=== PATIENT | male | born 1970 | race Caucasian/White ===

== ENCOUNTER → 2018-12-15 16:43 | Outpatient (CLI) | payer OTHER, SELFPAY ==
[2018-12-15 17:13] LABS: Basophils % 0.4 % (0.1-2.0); Eosinophils # 0.1 K/mm3 (0.0-0.4); Eosinophils % 0.7 % (0.1-12.0); Hematocrit 48.7 % (42.0-52.0); Hemoglobin 16.6 g/dL (14.1-18.0); Lymphocytes # 2.8 K/mm3 (0.7-4.5); Lymphocytes % 29.9 % (10-50); Mean Corpuscular Hemoglobin 29.9 pg (27.0-31.2); Mean Corpuscular Volume 87.7 fl (80-94); Mean Platelet Volume 7.6 fl (7.4-10.4); Monocytes # 0.4 K/mm3 (0.1-1.0); Monocytes % 4.5 % (1.7-9.3); Neutrophils % 64.4 % (37.0-80.0); Platelet Count 219 K/mm3 (142-424); Red Blood Count 5.55 M/mm3 (4.60-6.20); Red Cell Distribution Width 13.2 % (11.5-17.5); White Blood Count 9.3 K/mm3 (4.8-10.8)
[2018-12-15 17:33] LABS: Alanine Aminotransferase 29 U/L (12-78); Albumin Level 4.6 gm/dL (3.4-5.0); Albumin/Globulin Ratio 1.3 (1.1-1.8); Alkaline Phosphatase 64 U/L (46-116); Aspartate Amino Transferase 16 U/L (15-37); Bilirubin,Total 0.6 mg/dL (0.2-1.0); Blood Urea Nitrogen 10 mg/dL (7-18); Calcium 9.1 mg/dL (8.5-10.1); Carbon Dioxide 30 mmol/L (21.0-32.0); Chloride 99 mmol/L (98-107); Creatinine,Serum 1.32 mg/dL (0.70-1.30); Estimated Glomerular Filt Rate 58 ml/min (>60); GFR (African American) 70 ML/MIN (>60); Globulin 3.6 gm/dl (1.3-3.2); Glucose 80 mg/dL (74-106); Sodium 140 mmol/L (136-145); Total Protein,Serum 8.2 gm/dL (6.4-8.2)
[2018-12-15 19:08] LABS: INR 1.02 (0.9-1.1); Prothrombin Time 10.5 seconds (9.4-11.8)
[2018-12-17 09:17] LABS: Hep B Core Ab, Total Negative (Negative); Hepatitis B Surface Antigen Negative (Negative)
[2018-12-17 12:44] LABS: HIV Screen 4th Generation wRfx Non Reactive (Non Reactive); Hep A Ab, Total Positive (Negative); Hepatitis B Surf Ab Quant <3.1 mIU/mL (Immunity>9.9); Hepatitis C Antibody 0.1 s/co ratio (0.0-0.9)
== END ==
PROVIDERS: Visit Provider Emergency Medicine
DX: B19.20 Unspecified viral hepatitis C without hepatic coma (principal)
CPT/HCPCS: 36415; 80053; 85025; 85610; 86703; 86704; 86706; 86708; 87340; 87380; 87522; G0432

== ENCOUNTER → 2018-12-23 13:29 | Outpatient (CLI) | payer OTHER, SELFPAY ==
--- NOTE | 2018-12-23 13:32 | MR_ITS ---
MR cervical spine wo con, MR 3-d myelogram/MRCP HISTORY: RT arm tingling and burning. RT sided neck pain xyrs. ITS.REASON: neck pain ORDERING PHYSICIAN: Kane Doty MD PATIENT AGE: 48 years Comparison: None TECHNIQUE: Standard multiplanar multiecho sequences are performed without contrast. 3-D MIP and myelographic images are also rendered and reviewed FINDINGS: There is normal alignment. The craniocervical junction has an unremarkable appearance. C2-C3: There is a broad-based left paracentral/foraminal and lateral disc osteophyte complex causing moderate to severe left-sided foraminal narrowing. C3-C4: Degenerative disc disease with bulging disc with bilateral uncovertebral hypertrophy with moderate bilateral lateral recess and foraminal narrowing. C4-C5: Degenerative disc disease with bulging disc with right-sided disc osteophyte complex at the uncovertebral region with severe right-sided lateral recess and foraminal narrowing. There is canal stenosis at this level at 8 mm with mild flattening of the cord anteriorly. C5-C6: Degenerative disc disease with bulging disc with broad-based disc osteophyte complex with moderate bilateral lateral recess and foraminal narrowing and moderate canal stenosis of 7 mm with mild flattening of the cord anteriorly. C6-C7: Degenerative disc disease with bulging disc along with facet and uncovertebral hypertrophy with moderate to severe canal stenosis at 7 mm with flattening of the cord anteriorly with severe bilateral lateral recess and foraminal narrowing greater on the left. C7-T1: Unremarkable. IMPRESSION: Abnormal MRI of the cervical spine with multilevel cervical spondylosis with multilevel degenerative disc disease, bulging disc, disc osteophyte complexes and facet and uncovertebral hypertrophy with multilevel canal stenosis with flattening of the cord anteriorly along with lateral recess and foraminal narrowing. Please see above for detailed description at each level.
--- NOTE | 2018-12-23 13:32 | MR_ITS ---
MR lumbar spine wo con HISTORY: KT sided LBP. HX back surgery 29 yrs ago. Numbness in LT leg. ITS.REASON: back pain ORDERING PHYSICIAN: Kane Doty MD PATIENT AGE: 48 years Comparison: X-RAY 07-10-2008. TECHNIQUE: Standard multiplanar multiecho sequences are performed without contrast. 3-D MIP and myelographic images are also rendered and reviewed FINDINGS: There is normal alignment. The spinal cord ends at the L1 level. Has been prior surgery with interpedicular screws at L4-L5 and S1 with moderate degree of artifact from the surgical hardware. T11-T12: Degenerative disc disease with minimal bulging disc along with mild facet and ligamentum hypertrophy. T12-L1: Unremarkable. L1-L2: Minimal retrolisthesis of L1 at 2 mm with mild bulging disc slightly eccentric to the left with mild bilateral foraminal narrowing slightly greater on the left compared to the right. Type II endplate changes posteriorly L2-L3: Degenerative disc disease with endplate irregularity and bulging disc along with facet and ligamentum flavum hypertrophy. There is severe bilateral lateral recess and foraminal narrowing and there is borderline narrowing of the canal. Type I endplate changes. L3-L4: Facet and ligamentum flavum hypertrophy with moderate bilateral lateral recess and foraminal narrowing. L4-L5: Prior posterior fusion with artifact from the interpedicular screws. There is some endplate hypertrophic change along the inferior endplate of L4 with mild bilateral foraminal narrowing. L5-S1: Artifact from the posterior fusion and interpedicular screws. 6 mm anterolisthesis of L5 on S1 with severe bilateral foraminal narrowing and degenerative disc disease. IMPRESSION: Postsurgical changes with artifact as described above with multilevel lumbar spondylosis with degenerative disc disease, bulging disc, facet and ligamentum hypertrophy with bilateral lateral recess and foraminal narrowing. Please see above for detailed description at each level. The degenerative disc disease is most severe at L2-L3 with borderline canal stenosis and severe bilateral lateral recess and foraminal narrowing. No obvious disc herniation
== END ==
PROVIDERS: PCP Emergency Medicine; Visit Provider Emergency Medicine
DX: M54.2 Cervicalgia (principal); M54.9 Dorsalgia, unspecified
CPT/HCPCS: 72141; 72148; 76376

== ENCOUNTER → 2018-12-31 16:58 | Outpatient (CLI) | payer OTHER, SELFPAY ==
[2018-12-31 18:14] LABS: Amphetamine/Metha Screen,Urine Negative ng/mL (<1000); Barbiturates Screen,Urine Negative ng/mL (<200); Benzodiazepines Screen,Urine Negative ng/mL (<200); Cannabinoid Screen,Urine Negative ng/mL (<50); Cocaine Screen,Urine Negative ng/mL (<300); Methadone Screen,Urine Negative ng/mL (<300); Opiate Screen,Urine Positive ng/mL (<300); Phencyclidine Screen,Urine Negative ng/mL (<25)
== END ==
PROVIDERS: Visit Provider Emergency Medicine
DX: M54.12 Radiculopathy, cervical region (principal)
CPT/HCPCS: 80305

== ENCOUNTER → 2019-01-09 13:40 | Outpatient (POV) | payer OTHER, SELFPAY ==
[2019-01-09 13:49] VITALS: BP 150/89; PULSE 76; RESP 18; O2SAT 98; BMI 35.2
--- NOTE | 2019-01-09 14:55 | HMH.PMCON ---
Assessment and Plan (1) Degenerative disc disease, cervical Current visit: No Status: Acute Category: Medical Code(s): M50.30 - Other cervical disc degeneration, unspecified cervical region (2) Lumbar degenerative disc disease Current visit: No Status: Chronic Category: Medical Code(s): M51.36 - Other intervertebral disc degeneration, lumbar region (3) Cervical stenosis of spinal canal Current visit: No Status: Chronic Category: Medical Code(s): M48.02 - Spinal stenosis, cervical region (4) Bulging of cervical intervertebral disc Current visit: No Status: Chronic Category: Medical Code(s): M50.20 - Other cervical disc displacement, unspecified cervical region (5) Spondylosis of cervical spine Current visit: No Status: Chronic Category: Medical Code(s): M47.812 - Spondylosis without myelopathy or radiculopathy, cervical region (6) Facet hypertrophy of cervical region Current visit: No Status: Chronic Category: Medical Code(s): M47.812 - Spondylosis without myelopathy or radiculopathy, cervical region (7) Lumbar radicular pain Current visit: No Status: Chronic Category: Medical Code(s): M54.16 - Radiculopathy, lumbar region - Assessment and plan all Dx Assessment and Plan for all problems:: We will seek approval and plan on a cervical epidural steroid injection under fluoroscopy. We will also follow-up on Dr. Melchor's recommendations. HPI - Data of Consult Patient: new to practice Consult date: 01/09/19 Requesting Physician: Charles Cook MD Primary Care Provider: Kane Doty MD - Consult Narrative History of present illness: Mr. Jane is a 48 year old male who has significant neck pain with cervical radiculopathy symptoms and low back pain with lumbar radiculopathy symptoms. On MRI he does have degenerative changes throughout the cervical and lumbar spine with bulging disc, neuroforaminal narrowing and facet hypertrophy. He is not had any injections. He is scheduled to see Dr. Melchor next week. He would like to start with cervical epidural steroid injections. He does have pain which radiates from his neck to both arms. He rates his pain at an 8 out of 10. He describes pain is sharp, shooting, aching. We will seek approval and plan on a cervical epidural steroid injection under fluoroscopy. We will also follow-up with Dr. Melchor evaluation. CC: Charles Cook MD [facility] History I have reviewed the patient's past medical history: Yes *Have you ever received a pneumonia vaccine?: No Other Medical History: Reports: Other Laterality Cases: Left: Arthroscopy Knee, Bilateral: Carpal Tunnel Release Other Surgeries: Yes: Appendectomy Amputation: No Fractures: Yes (ribs) - *Social History Smoking Status: Current some day smoker Tobacco Type: cigarettes, smokeless tobacco # Packs/Day (cigarettes): 0 Alcohol Intake: former Substance Use Type: opiates Last Used Substance: unknown *Occupational Status:: employed Housing: apartment Household Members: family *Travel in the last 8 weeks: None - Psychiatric History Expresses thoughts of harming self/others: None Suicide Plan Description: No Plan Family Hx:: Cancer, Heart Attack Review of Systems - Review of Systems Review of systems:: pertinent systems reviewed and negative unless documented below - *Musculoskeletal Reports abnormal walking, Reports joint pain, Reports back pain, Reports neck pain, Reports radiating pain into limb, Reports stiffness, Reports tingling Meds Home Medications Medication Instructions Recorded Confirmed Type diclofenac 1 % topical gel 2 g TOPICAL QID #100 g 12/09/18 12/31/18 Rx gabapentin 600 mg tablet 600 mg PO TID #90 tab 12/31/18 Rx oxycodone-acetaminophen 7.5 mg-325 1 tab PO TID PRN #63 tab 12/31/18 Rx mg tablet Allergies Allergy/AdvReac Type Severity Reaction Status Date / Time From Penicillin G Sodium Allergy Unknown Uncoded 12/31/18 15:24 Penicillin Allerg
--- NOTE | 2019-01-09 14:58 | P.CONS_ITS ---
Assessment and Plan (1) Degenerative disc disease, cervical Current visit: No Status: Acute Category: Medical Code(s): M50.30 - Other cervical disc degeneration, unspecified cervical region (2) Lumbar degenerative disc disease Current visit: No Status: Chronic Category: Medical Code(s): M51.36 - Other intervertebral disc degeneration, lumbar region (3) Cervical stenosis of spinal canal Current visit: No Status: Chronic Category: Medical Code(s): M48.02 - Spinal stenosis, cervical region (4) Bulging of cervical intervertebral disc Current visit: No Status: Chronic Category: Medical Code(s): M50.20 - Other cervical disc displacement, unspecified cervical region (5) Spondylosis of cervical spine Current visit: No Status: Chronic Category: Medical Code(s): M47.812 - Spondylosis without myelopathy or radiculopathy, cervical region (6) Facet hypertrophy of cervical region Current visit: No Status: Chronic Category: Medical Code(s): M47.812 - Spondylosis without myelopathy or radiculopathy, cervical region (7) Lumbar radicular pain Current visit: No Status: Chronic Category: Medical Code(s): M54.16 - Radi culopathy, lumbar region - Assessment and plan all Dx Assessment and Plan for all problems:: We will seek approval and plan on a cervical epidural steroid injection under fluoroscopy. We will also follow-up on Dr. Melchor's recommendations. HPI - Data of Consult Patient: new to practice Consult date: 01/09/19 Requesting Physician: Charles Cook MD Primary Care Provider: Kane Doty MD - Consult Narrative History of present illness: Mr. Jane is a 48 year old male who has significant neck pain with cervical radiculopathy symptoms and low back pain with lumbar radiculopathy symptoms. On MRI he does have degenerative changes throughout the cervical and lumbar spine with bulging disc, neuroforaminal narrowing and facet hypertrophy. He is not had any injections. He is scheduled to see Dr. Melchor next week. He would like to start with cervical epidural steroid injections. He does have pain which radiates from his neck to both arms. He rates his pain at an 8 out of 10. He describes pain is sharp, shooting, aching. We will seek approval and plan on a cervical epidural steroid injection under fluoroscopy. We will also follow-up with Dr. Melchor evaluation. CC: Charles Cook MD [facility] History I have reviewed the patient's past medical history: Yes *Have you ever received a pneumonia vaccine?: No Other Medical History: Reports: Other Laterality Cases: Left: Arthroscopy Knee, Bilateral: Carpal Tunnel Release Other Surgeries: Yes: Appendectomy Amputation: No Fractures: Yes (ribs) - *Social History Smoking Status: Current some day smoker Tobacco Type: cigarettes, smokeless tobacco # Packs/Day (cigarettes): 0 Alcohol Intake: former Substance Use Type: opiates Last Used Substance: unknown *Occupational Status:: employed Housing: apartment Household Members: family *Travel in the last 8 weeks: None - Psychiatric History Expresses thoughts of harming self/others: None Suicide Plan Description: No Plan Family Hx:: Cancer, Heart Attack Review of Systems - Review of Systems Review of systems:: pertinent systems reviewed and negative unless documented below - *Musculoskeletal Reports abnormal walking, Reports joint pain, Reports back pain, Reports neck pain, Reports radiating pain into limb, Reports stiffness, Reports tingling Meds Home Medications
== END ==
PROVIDERS: PCP Emergency Medicine; Visit Provider Anesthesiology
DX: M51.16 Intervertebral disc disorders with radiculopathy, lumbar region (principal); M50.20 Other cervical disc displacement, unspecified cervical region; M50.10 Cervical disc disorder with radiculopathy, unspecified cervical region
CPT/HCPCS: 99202

== ENCOUNTER → 2019-01-15 13:22 | Outpatient (POV) | payer OTHER, SELFPAY | PROVIDERS: Visit Provider Neurological Surgery | DX: Z00.00 Encounter for general adult medical examination without abnormal findings (principal) ==

== ENCOUNTER → 2019-01-19 18:21 | Outpatient (CLI) | payer OTHER, SELFPAY ==
[2019-01-19 19:28] LABS: Amphetamine/Metha Screen,Urine Negative ng/mL (<1000); Barbiturates Screen,Urine Negative ng/mL (<200); Benzodiazepines Screen,Urine Negative ng/mL (<200); Cannabinoid Screen,Urine Negative ng/mL (<50); Cocaine Screen,Urine Negative ng/mL (<300); Methadone Screen,Urine Negative ng/mL (<300); Opiate Screen,Urine Negative ng/mL (<300); Phencyclidine Screen,Urine Negative ng/mL (<25)
[2019-01-29 15:19] LABS: Oxycodone (GC/MS) 240 ng/mL (Cutoff=100)
[2019-01-30 07:29] LABS: Opiates Negative (Cutoff=100); Oxymorphone (GC/MS) 319 ng/mL (Cutoff=100)
== END ==
PROVIDERS: Visit Provider Emergency Medicine
DX: Z79.899 Other long term (current) drug therapy (principal)
CPT/HCPCS: 80305; 80361; 80365; G0480

== ENCOUNTER 2019-01-30 09:40 | Day surgery (SDC) | payer OTHER, SELFPAY ==
[2019-01-30 09:59] VITALS: BP 125/69; PULSE 68; RESP 16; TEMP 37; O2SAT 97; BMI 35.7
--- NOTE | 2019-01-30 10:17 | HMH.PMPROC ---
- Procedure Date: 01/30/19 Time: 10:17 Anesthesiologist:: Charles Cook MD Complications:: None Pre-procedure Diagnosis:: Degenerative disc disease of cervical spine with cervical radiculopathy symptoms Post-procedure Diagnosis:: Same Indications for Procedure:: This patient is a pleasant 48-year-old white male who has significant neck pain with cervical radiculopathy symptoms along with low back pain with lumbar radiculopathy symptoms. MRI does show degenerative changes throughout the cervical lumbar spine with bulging disc, neural foraminal narrowing and facet hypertrophy. His neck pain is worse in his low back pain so he would like to start with cervical epidural steroid injections. We will plan on a cervical epidural steroid injection under fluoroscopy today. Procedure Details:: Cervical epidural steroid injection under fluoroscopy Informed consent was obtained and the risks and benefits of the procedure was explained to the patient. The patient was taken to the procedure room placed prone on the procedure table. The neck was prepped using ChloraPrep. The skin and subcutaneous tissues were anesthetized using lidocaine. I placed a 18-gauge epidural needle into the C5-C6 interspace and advanced using [id number] to air and fluoroscopic guidance. After confirmation of needle placement in the epidural space with dye, I injected 3 mL's lidocaine 1.5% and Depo-Medrol 80 mg. The patient tolerated the procedure well with no complications. Plan and Disposition:: We will follow-up with him in 2 weeks. Will reevaluate his symptoms at that time.
[2019-01-30 10:23] VITALS: BP 130/81; PULSE 65; RESP 18
[2019-01-30 10:24] VITALS: BP 135/85; PULSE 66; RESP 18; O2SAT 98
[2019-01-30 10:38] VITALS: BP 115/67; PULSE 69; RESP 16; TEMP 36.8; O2SAT 96
== END 2019-01-30 10:40 | disposition home or self-care (01) ==
PROVIDERS: PCP Emergency Medicine; Visit Provider Anesthesiology
DX: M50.10 Cervical disc disorder with radiculopathy, unspecified cervical region (principal)
CPT/HCPCS: 62321; J1040; Q9966

== ENCOUNTER → 2019-02-16 14:21 | Outpatient (POV) | payer OTHER, SELFPAY ==
[2019-02-16 15:29] VITALS: BP 145/83; PULSE 80; RESP 18; O2SAT 98; BMI 34.4
--- NOTE | 2019-02-16 15:29 | HMH.PAINSOAP ---
[facility] Pain Management SOAP Note Subjective:: Patient is a pleasant 48-year-old white well who presents today for follow-up from a vehicle epidural steroid injection. Patient reports that he got 0 relief from the injection. He says that he is having pain, numbness and tingling to his right arm and into his entire hand. Patient says he has to lift his right arm to relieve pressure and pain. 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 On MRI, he does have degenerative changes throughout the cervical and lumbar spine with bulging disc, and neuroforaminal narrowing and facet hypertrophy. Patient has seen Dr. Melchor also. He rates his pain an 8 out of 10 today. The patient is taking [place] 7.5 mg 1 p.o. 3 times daily and gabapentin 600 mg 1 p.o. 3 times daily by his primary care physician. ROS General: no recent weight change, no fever, no sleep disturbances Respiratory: no cough, no shortness of air, no recurring pulmonary infections Cardiovascular/Peripheral Vascular: No chest pain, No palpitations, no edema, no shortness of breath. Gastrointestinal: no incontinence, normal bowel movements reported Genitourinary: no incontinence Musculoskeletal: [Neck pain, right arm pain] Psychiatric: normal mood/ affect, [denies depression], [denies anxiety] Neurological: [denies weakness in extremities], [denies balance issues] Objective:: Physical Exam General: Alert and oriented x3, no acute distress, pleasant and cooperative, [on room air] Lungs: Resps E/U, Symmetrical chest expansion, Eyes: PERRL Musculoskeletal: Flexion and extension of cervical spine somewhat guarded secondary to pain, deep tendon reflexes normal, strength in upper and lower extremities [5/5], normal gait noted, positive facet loading, positive Spurling's test Neurological: speech clear, 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 Cervical spondylosis, facet arthropathy cervical spine Plan:: Schedule the patient for C5-C6 and C6-C7 facet joint injections on the right side. Given his symptomology, I think these would be beneficial. Patient is not on any anticoagulation therapy. He is continuing home stretching program. Patient currently on anti-inflammatories. We will schedule him for the procedure and reassess him afterwards. Been instructed to call the office if he has any issues prior to the next appointment. She understands that this procedure is diagnostic in nature he may be a RFA candidate. Dr. Cook has reviewed this note and agrees with this plan of care. This note was dictated using voice recognition software and may contain errors or omissions
== END ==
PROVIDERS: PCP Emergency Medicine; Visit Provider Clinical Nurse Specialist Family Health
DX: M50.30 Other cervical disc degeneration, unspecified cervical region (principal); M47.892 Other spondylosis, cervical region; M46.82 Other specified inflammatory spondylopathies, cervical region
CPT/HCPCS: 99212

== ENCOUNTER → 2019-02-18 13:49 | Outpatient (CLI) | payer OTHER, SELFPAY ==
[2019-02-18 14:47] LABS: Amphetamine/Metha Screen,Urine Negative ng/mL (<1000); Barbiturates Screen,Urine Negative ng/mL (<200); Benzodiazepines Screen,Urine Negative ng/mL (<200); Cannabinoid Screen,Urine Negative ng/mL (<50); Cocaine Screen,Urine Negative ng/mL (<300); Methadone Screen,Urine Negative ng/mL (<300); Opiate Screen,Urine Negative ng/mL (<300); Phencyclidine Screen,Urine Negative ng/mL (<25)
[2019-02-24 15:10] LABS: Oxycodone (GC/MS) 357 ng/mL (Cutoff=100)
[2019-02-25 17:36] LABS: Opiates Negative (Cutoff=100); Oxymorphone (GC/MS) 1367 ng/mL (Cutoff=100)
== END ==
PROVIDERS: Visit Provider Emergency Medicine
DX: Z79.899 Other long term (current) drug therapy (principal); M54.12 Radiculopathy, cervical region
CPT/HCPCS: 80305; 80361; 80365; G0480

== ENCOUNTER → 2019-04-15 18:58 | Outpatient (CLI) | payer OTHER, SELFPAY ==
[2019-04-15 19:29] LABS: Amphetamine/Metha Screen,Urine Negative ng/mL (<1000); Barbiturates Screen,Urine Negative ng/mL (<200); Benzodiazepines Screen,Urine Negative ng/mL (<200); Cannabinoid Screen,Urine Negative ng/mL (<50); Cocaine Screen,Urine Negative ng/mL (<300); Methadone Screen,Urine Negative ng/mL (<300); Opiate Screen,Urine Positive ng/mL (<300); Phencyclidine Screen,Urine Negative ng/mL (<25)
== END ==
PROVIDERS: Visit Provider Emergency Medicine
DX: Z79.899 Other long term (current) drug therapy (principal)
CPT/HCPCS: 80305

== ENCOUNTER → 2019-04-20 15:45 | Outpatient (POV) | payer OTHER, SELFPAY ==
[2019-04-20 15:53] VITALS: BP 138/90; PULSE 84; RESP 18; O2SAT 98; BMI 34.2
--- NOTE | 2019-04-20 16:07 | HMH.PAINSOAP ---
[facility] Pain Management SOAP Note Subjective:: Patient is a pleasant 48-year-old white male who presents today for follow-up after insurance denial of his facet joint injection. 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 Patient has predominantly right sided neck pain. He has difficulty with rotation. Patient needs a facet joint injection to help determine the facet joint as the cause of pain. We discussed that it is diagnostic in nature and that he may be a candidate for neurotomy. Patient is currently not on any anticoagulation therapy. He also currently has no active infections. Patient has tried and failed over 6 months of physical therapy and medication. He is continuing a home stretching program however this is becoming more more difficult. Patient is currently on pain medication which is not beneficial for him. He is failed over a year of this. Patient does have an MRI showing facet disease. He is taking [place] 7.5 mg 1 p.o. 3 times daily and gabapentin 600 mg 1 p.o. 3 times daily from his primary care physician. Patient is concerned that if he gets denied for facet joint injections again that he will then have to move on to surgical intervention. ROS General: no recent weight change, no fever, no sleep disturbances Respiratory: no cough, no shortness of air, no recurring pulmonary infections Cardiovascular/Peripheral Vascular: No chest pain, No palpitations, no edema, no shortness of breath. Gastrointestinal: no incontinence, normal bowel movements reported Genitourinary: no incontinence Musculoskeletal: Neck pain Psychiatric: normal mood/ affect Neurological: [denies weakness in extremities], [denies balance issues] Objective:: Physical Exam General: Alert and oriented x3, no acute distress, pleasant and cooperative, [on room air] Lungs: Resps E/U, Symmetrical chest expansion, Eyes: PERRL Musculoskeletal: Flexion and extension of cervical spine somewhat guarded secondary to pain, deep tendon reflexes normal, strength in upper and lower extremities [5/5], normal gait noted, positive Spurling's test cervical spine right side, positive facet loading cervical spine Neurological: speech clear, 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 Again he is not on any anticoagulation therapy. He is continuing a home stretching program. He is currently on anti-inflammatories he is failed over 6 months of conservative measures including physical therapy and medications. Patient does not have an active infection. Patient potentially could be a neurotomy candidate if we can determine diagnostically through this medial branch block/facet joint injection but the facet is the cause of the spinal pain. Patient's been instructed to call the office if he has any issues prior to his next appointment. Dr. Cook has reviewed this note and agrees with this plan of care. This note was dictated using voice recognition software and may contain errors or omissions Pain Management Hx Components *Have you ever received a pneumonia vaccine?: No *Have you received a flu vaccine this season?: Yes - *Social History *Occupational Status:: other *Travel in the last 8 weeks: None
--- NOTE | 2019-04-20 16:11 | P.CONS_ITS ---
[facility] Pain Management SOAP Note Subjective:: Patient is a pleasant 48-year-old white male who presents today for follow-up after insurance denial of his facet joint injection. 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 Patient has predominantly right sided neck pain. He has difficulty with rotation. Patient needs a facet joint injection to help determine the facet joint as the cause of pain. We discussed that it is diagnostic in nature and that he may be a candidate for neurotomy. Patient is currently not on any anticoagulation therapy. He also currently has no active infections. Patient has tried and failed over 6 months of physical therapy and medication. He is continuing a home stretching program however this is becoming more more difficult. Patient is currently on pain medication which is not beneficial for him. He is failed over a year of this. Patient does have an MRI showing facet disease. He is taking [place] 7.5 mg 1 p.o. 3 times daily and gabapentin 600 mg 1 p.o. 3 times daily from his primary care physician. Patient is concerned that if he gets denied for facet joint injections again that he will then have to move on to surgical intervention. ROS General: no recent weight change, no fever, no sleep disturbances Respiratory: no cough, no shortness of air, no recurring pulmonary infections Cardiovascular/Peripheral Vascular: No chest pain, No palpitations, no edema, no shortness of breath. Gastrointestinal: no incontinence, normal bowel movements reported Genitourinary: no incontinence Musculoskeletal: Neck pain Psychiatric: normal mood/ affect Neurological: [denies weakness in extremities], [denies balance issues] Objective:: Physical Exam General: Alert and oriented x3, no acute distress, pleasant and cooperative, [on room air] Lungs: Resps E/U, Symmetrical chest expansion, Eyes: PERRL Musculoskeletal: Flexion and extension of cervical spine somewhat guarded secondary to pain, deep tendon reflexes normal, strength in upper and lower extremities [5/5], normal gait noted, positive Spurling's test cervical spine right side, positive facet loading cervical spine Neurological: speech clear, 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 Again he is not on any anticoagulation therapy. He is continuing a home stretching program. He is currently on anti-inflammatories he is failed o noelle 6 months of conservative measures including physical therapy and medications. Patient does not have an active infection. Patient potentially could be a neurotomy candidate if we can determine diagnostically through this medial branch block/facet joint injection but the facet is the cause of the spinal pain. Patient's been instructed to call the office if he has any issues prior to his next appointment. Dr. Cook has reviewed this note and agrees with this plan of care. This note was dictated using voice recognition software and may contain errors or omissions Pain Management Hx Components *Have you ever received a pneumonia vaccine?: No *Have you received a flu vaccine this season?: Yes - *Social History *Occupational Status:: other *Travel in the last 8 weeks: None
== END ==
PROVIDERS: PCP Emergency Medicine; Visit Provider Clinical Nurse Specialist Family Health
DX: M50.30 Other cervical disc degeneration, unspecified cervical region (principal); M47.892 Other spondylosis, cervical region; M54.02 Panniculitis affecting regions of neck and back, cervical region
CPT/HCPCS: 99212

== ENCOUNTER → 2019-05-13 17:54 | Outpatient (CLI) | payer OTHER, SELFPAY ==
[2019-05-13 18:50] LABS: Amphetamine/Metha Screen,Urine Negative ng/mL (<1000); Barbiturates Screen,Urine Negative ng/mL (<200); Benzodiazepines Screen,Urine Negative ng/mL (<200); Cannabinoid Screen,Urine Negative ng/mL (<50); Cocaine Screen,Urine Negative ng/mL (<300); Methadone Screen,Urine Negative ng/mL (<300); Opiate Screen,Urine Negative ng/mL (<300); Phencyclidine Screen,Urine Negative ng/mL (<25)
[2019-05-19 22:10] LABS: Oxycodone Positive (.); Oxymorphone Positive (.)
[2019-05-21 06:10] LABS: Oxycodone Confirm 1472 ng/mL (Cutoff=100); Oxymorphone Confirm 1068 ng/mL (Cutoff=100)
== END ==
PROVIDERS: Visit Provider Emergency Medicine
DX: M54.16 Radiculopathy, lumbar region (principal); Z79.891 Long term (current) use of opiate analgesic
CPT/HCPCS: 80305; 80365

== ENCOUNTER → 2019-06-08 13:34 | Outpatient (POV) | payer OTHER, SELFPAY ==
[2019-06-08 13:44] VITALS: BP 133/76; PULSE 75; RESP 20; O2SAT 98; BMI 32.5
--- NOTE | 2019-06-09 08:40 | HMH.PAINSOAP ---
[facility] Pain Management SOAP Note Subjective:: Patient is a pleasant 48-year-old white male who presents today for follow-up after C5-C6 C6-C7 medial branch block/facet joint injection. Patient states that his pain today is a 7 out of 10 however after his injection he did do better. Patient states he felt good for a while and his headaches have decreased significantly. Patient and I discussed the potential for a neurotomy. Taking care of this pain for longer and he is uninterested at this time in pursuing any more injections or potential ablations of his nerves. I did give the patient information in regards to this. ROS General: no recent weight change, no fever, no sleep disturbances Respiratory: no cough, no shortness of air, no recurring pulmonary infections Cardiovascular/Peripheral Vascular: No chest pain, No palpitations, no edema, no shortness of breath. Gastrointestinal: no incontinence, normal bowel movements reported Genitourinary: no incontinence Musculoskeletal: Neck pain Psychiatric: normal mood/ affect Neurological: [denies weakness in extremities], [denies balance issues] Objective:: Physical Exam General: Alert and oriented x3, no acute distress, pleasant and cooperative, [on room air] Lungs: Resps E/U, Symmetrical chest expansion, Eyes: PERRL Musculoskeletal: Flexion and extension of cervical spine somewhat guarded secondary to pain, deep tendon reflexes normal, strength in upper and lower extremities [5/5], slightly antalgic gait noted Neurological: speech clear, 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 Patient is to continue med management with his primary care physician. I discussed with him that he is welcome to return at any time if he is interested in pursuing any other methods of pain management. Dr. Cook has reviewed this note and agrees with this plan of care. This note was dictated using voice recognition software and may contain errors or omissions [facility] History I have reviewed the patient's past medical history: Yes Medical History: Denies:: Cancer, Diabetes Mellitus Type 1, Diabetes Mellitus Type 2, MRSA, Seizures *Have you ever received a pneumonia vaccine?: No *Have you received a flu vaccine this season?: No Other Medical History: Reports: Other. Denies: Blood Transfusion Reaction Laterality Cases: Other Surgeries: Yes: Appendectomy Amputation: No Fractures: Yes (ribs) - *Social History Smoking Status: Current every day smoker Tobacco Type: cigarettes # Packs/Day (cigarettes): 1 Alcohol Intake: never Substance Use Type: opiates *Occupational Status:: other Housing: apartment Household Members: family *Travel in the last 8 weeks: None Family Hx:: Cancer, Heart Attack
--- NOTE | 2019-06-09 08:43 | P.CONS_ITS ---
[facility] Pain Management SOAP Note Subjective:: Patient is a pleasant 48-year-old white male who presents today for follow-up after C5-C6 C6-C7 medial branch block/facet joint injection. Patient states that his pain today is a 7 out of 10 however after his injection he did do better. Patient states he felt good for a while and his headaches have decreased significantly. Patient and I discussed the potential for a neurotomy. Taking care of this pain for longer and he is uninterested at this time in pursuing any more injections or potential ablations of his nerves. I did give the patient information in regards to this. ROS General: no recent weight change, no fever, no sleep disturbances Respiratory: no cough, no shortness of air, no recurring pulmonary infections Cardiovascular/Peripheral Vascular: No chest pain, No palpitations, no edema, no shortness of breath. Gastrointestinal: no incontinence, normal bowel movements reported Genitourinary: no incontinence Musculoskeletal: Neck pain Psychiatric: normal mood/ affect Neurological: [denies weakness in extremities], [denies balance issues] Objective:: Physical Exam General: Alert and oriented x3, no acute distress, pleasant and cooperative, [on room air] Lungs: Resps E/U, Symmetrical chest expansion, Eyes: PERRL Musculoskeletal: Flexion and extension of cervical spine somewhat guarded secondary to pain, deep tendon reflexes normal, strength in upper and lower extremities [5/5], slightly antalgic gait noted Neurological: speech clear, 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 Patient is to continue med management with his primary care physician. I discussed with him that he is welcome to return at any time if he is interested in pursuing any other methods of pain management. Dr. Cook has reviewed this note and agrees with this plan of care. This note was dictated using voice recognition software and may contain errors or omissions [facility] History I have reviewed the patient's past medical history: Yes Medical History: Denies:: Cancer, Diabetes Mellitus Type 1, Diabetes Mellitus Type 2, MRSA, Seizures *Have you ever received a pneumonia vaccine?: No *Have you received a flu vaccine this season?: No Other Medical History: Reports: Other. Denies: Blood Transfusion Reaction Laterality Cases: Other Surgeries: Yes: Appendectomy Amputation: No Fractures: Yes (ribs) - *Social History Smoking Status: Current every day smoker Tobacco Type: cigarettes # Packs/Day (cigarettes): 1 Alcohol Intake: never Substance Use Type: opiates *Occupational Status:: other Housing: apartment Household Members: family *Travel in the last 8 weeks: None Family Hx:: Cancer, Heart Attack
== END ==
PROVIDERS: PCP Emergency Medicine; Visit Provider Clinical Nurse Specialist Family Health
DX: M50.10 Cervical disc disorder with radiculopathy, unspecified cervical region (principal); M47.812 Spondylosis without myelopathy or radiculopathy, cervical region
CPT/HCPCS: 99212

== ENCOUNTER → 2019-07-08 18:08 | Outpatient (CLI) | payer OTHER, SELFPAY ==
[2019-07-08 20:11] LABS: Amphetamine/Metha Screen,Urine Negative ng/mL (<1000); Barbiturates Screen,Urine Negative ng/mL (<200); Benzodiazepines Screen,Urine Negative ng/mL (<200); Cannabinoid Screen,Urine Negative ng/mL (<50); Cocaine Screen,Urine Negative ng/mL (<300); Methadone Screen,Urine Negative ng/mL (<300); Opiate Screen,Urine Negative ng/mL (<300); Phencyclidine Screen,Urine Negative ng/mL (<25)
[2019-07-16 23:08] LABS: Oxycodone Positive (.); Oxymorphone Positive (.)
[2019-07-17 06:48] LABS: Oxycodone Confirm 498 ng/mL (Cutoff=100); Oxymorphone Confirm 334 ng/mL (Cutoff=100)
== END ==
PROVIDERS: Visit Provider Emergency Medicine
DX: Z79.899 Other long term (current) drug therapy (principal)
CPT/HCPCS: 80305; 80365

== ENCOUNTER → 2019-09-07 18:00 | Outpatient (CLI) | payer MEDICAID, SELFPAY ==
[2019-09-07 21:45] LABS: Amphetamine/Metha Screen,Urine Negative ng/mL (<1000); Barbiturates Screen,Urine Negative ng/mL (<200); Benzodiazepines Screen,Urine Negative ng/mL (<200); Cannabinoid Screen,Urine Negative ng/mL (<50); Cocaine Screen,Urine Negative ng/mL (<300); Methadone Screen,Urine Negative ng/mL (<300); Opiate Screen,Urine Negative ng/mL (<300); Phencyclidine Screen,Urine Negative ng/mL (<25)
== END ==
PROVIDERS: Visit Provider Emergency Medicine
DX: Z79.899 Other long term (current) drug therapy (principal)
CPT/HCPCS: 80305

== ENCOUNTER → 2020-02-24 11:31 | Outpatient (CLI) | payer MEDICAID, OTHER, SELFPAY ==
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
== END ==
PROVIDERS: PCP Emergency Medicine; Visit Provider Physician Assistant
DX: R51 Headache (principal); M54.5 Low back pain; M54.2 Cervicalgia; V89.2XXA Person injured in unspecified motor-vehicle accident, traffic, initial encounter
CPT/HCPCS: 70450; 72141; 72148; 76376